=== PATIENT | female | born 1945 | race Caucasian/White ===

== ENCOUNTER 2021-09-29 09:49 | Emergency (ER) | payer MEDICARE, SELFPAY ==
--- NOTE | ~2021-09-29 | US_ITS ---
EXAMINATION:US venous doppler LE BI INDICATION:Leg swelling TECHNIQUE: Multiple grayscale, color flow and Doppler images of the right and left lower extremity de ep venous systems were obtained and reviewed. COMPARISON:No prior studies for comparison. FINDINGS: The common femoral, superficial femoral and popliteal veins demonstrate normal respiratory variation, augmentation and compressibility. Color flow is also seen within the posterior tibial, , greater saphenous and profunda veins. Peroneal veins are not visualized due to patient body habitus. IMPRESSION: 1: No lower extremity deep venous thrombosis. Reviewed, dictated and finalized at location B. [employer] OPERATOR
[2021-09-29 10:44] VITALS: BP 139/79; PULSE 77; RESP 16; TEMP 36.1; O2SAT 96
--- NOTE | 2021-09-29 12:28 | ECG_ITS ---
Measurements Intervals [place] Rate: 69 P: 65 SD: 186 QRS: -25 QRSD: 96 T: -3 QT: 401 QTc: 430 Interpretive Statements SINUS RHYTHM CONSIDER INFERIOR INFARCT, AGE INDETERMINATE BASELINE ARTIFACT- I, II, III, AVR, AVL, AVF, V1-V2 ABNORMAL ECG Electronically Signed On 09-29-2021 17:56:44 [employer]EL FINISHER by Naseem Justice D.O.
--- NOTE | 2021-09-29 12:52 | ED.GENADULT ---
HPI - General Adult General Chief complaint: Extremity Problem,Nontraumatic Stated complaint: Swelling feet Time Seen by Provider: 09/29/21 12:28 Source: patient History of Present Illness HPI narrative: Patient is a 76 y/o female complaining of severe bilateral leg swelling for 1-2 months. There is no known alleviating or exacerbating factor. She has no leg pain, no chest pain or SOB. Review of Systems Constitutional: Constitutional: Denies chills, Denies fever(s), Denies headache(s) and Denies weakness Eyes: Eyes: Denies blurry vision ENT: Denies headache(s) and Denies neck pain Cardiovascular: Cardiovascular: Denies chest pain, Reports pedal edema and Denies dyspnea Respiratory: Respiratory: Denies cough and Denies dyspnea Gastrointestinal: Gastrointestinal: Denies abdominal pain, Denies diarrhea, Denies nausea and Denies vomiting Genitourinary: Genitourinary: Denies hematuria and Denies dysuria Musculoskeletal: Musculoskeletal: Denies back pain and Denies neck pain Neurologic: Denies headache(s) and Denies weakness Exam Const: General: no acute distress and well developed Orientation/consciousness: oriented to person, oriented to place, oriented to time and patient oriented x3 HENMT: Head: normocephalic Ears: external ears normal General nose exam: Normal external nose present Eyes: General: appearance normal, both eyes and all related structures Conjunctivae: conjunctivae normal Neck: Neck: normal visual inspection and full ROM Chest: Chest palpation & inspection: normal inspection of the chest and no tenderness Resp: Effort & Inspection: normal respiratory effort Auscultation: clear to auscultation bilaterally Cardio: Rate: regular rate Rhythm: regular rhythm GI: GI Palp: No abdominal tenderness and Yes Soft to palpation Skin: General skin exam: normal color and turgor normal Neuro: General: oriented to person, oriented to place, oriented to time and patient oriented x3 Cognition (Neuro): normal cognition Extrem: General: full ROM and edema bilateral Psych: Appearance: grossly normal Mental Status: mental status grossly normal Affect: normal affect Course Vital Signs Vital signs: Vital Signs Temperature 36.1 C L 09/29/21 10:44 Pulse Rate 77 09/29/21 10:44 Respiratory Rate 16 09/29/21 10:44 Blood Pressure 139/79 09/29/21 10:44 Pulse Oximetry 96 09/29/21 10:44 Temperature 36.1 C L 09/29/21 10:44 Pulse Rate 77 09/29/21 10:44 Respiratory Rate 18 09/29/21 15:18 Blood Pressure 137/62 09/29/21 14:31 Pulse Oximetry 98 09/29/21 14:31 Medical Decision Making Vital Signs Vital Signs: Vital Signs Temperature 36.1 C L 09/29/21 10:44 Pulse Rate 77 09/29/21 10:44 Respiratory Rate 16 09/29/21 10:44 Blood Pressure 139/79 09/29/21 10:44 Pulse Oximetry 96 09/29/21 10:44 Temperature 36.1 C L 09/29/21 10:44 Pulse Rate 77 09/29/21 10:44 Respiratory Rate 18 09/29/21 15:18 Blood Pressure 137/62 09/29/21 14:31 Pulse Oximetry 98 09/29/21 14:31 Lab Data Result diagrams: 09/29/21 13:23 09/29/21 13:23 Labs: Lab Results 09/29/21 09/29/21 Range/Units 13:23 13:23 WBC 7.0 (4.5-10.0) K/mm3 RBC 3.45 L (4.2-5.4) M/mm3 Hgb 10.2 L (12.0-15.0) g/dL Hct 31.3 L (37.0-47.0) % MCV 90.7 (80-100) fl MCH 29.6 (26-34) pg MCHC 32.6 (32-36) g/dl RDW 14.6 H (11.5-14.5) % Plt Count 257 (150-375) k/mm3 MPV 9.0 (7.4-10.4) fl Immature Gran % (Auto) 0.3 (0-0.5) % Neut % (Auto) 61.4 (45.5-73.1) % Lymph % (Auto) 27.4 (18.3-44.2) % Cobb % (Auto) 9.7 H (2.6-8.5) % Eos % (Auto) 0.6 (0-4.4) % Baso % (Auto) 0.6 (0.2-1.2) % Lymph # (Auto) 1.93 (0.9-3.2) K/mm3 Cobb # (Auto) 0.7 H (0.1-0.6) K/mm3 Eos # (Auto) 0.0 (0-0.3) K/mm3 Baso # (Auto) 0.0 (0.0-0.1) K/mm3 Abs Immat Gran (auto) 0.02 (0.00-0.031) K/mm3 Absolute Neuts (auto) 4.3 (1.3-6.7)
[2021-09-29 13:36] LABS: Basophils Percent Auto 0.6 % (0.2-1.2); Eosinophils Percent Auto 0.6 % (0-4.4); Hematocrit 31.3 % (37.0-47.0); Hemoglobin 10.2 g/dL (12.0-15.0); Immature Granulocyte Absolute 0.02 K/mm3 (0.00-0.031); Immature Granulocyte Percent A 0.3 % (0-0.5); Lymphocytes Absolute Auto 1.93 K/mm3 (0.9-3.2); Lymphocytes Percent Auto 27.4 % (18.3-44.2); Mean Corpuscular HGB Conc 32.6 g/dl (32-36); Mean Corpuscular Hemoglobin 29.6 pg (26-34); Mean Corpuscular Volume 90.7 fl (80-100); Monocytes Absolute Auto 0.7 K/mm3 (0.1-0.6); Monocytes Percent Auto 9.7 % (2.6-8.5); Neutrophils Absolute Auto 4.3 K/mm3 (1.3-6.7); Neutrophils Percent Auto 61.4 % (45.5-73.1); Platelet Count Result 257 k/mm3 (150-375); Red Blood Count 3.45 M/mm3 (4.2-5.4); Red Cell Distribution Width 14.6 % (11.5-14.5)
[2021-09-29 13:50] LABS: Alanine Aminotransferase 11 U/L (4-35); Albumin Level 3.7 g/dL (3.5-5.1); Alkaline Phosphatase 59 U/L (38-126); Anion Gap 5 mmol/L (8-16); Aspartate Amino Transferase 24 U/L (14-36); Bilirubin,Total 0.4 mg/dL (0.2-1.3); Blood Urea Nitrogen 15 mg/dL (7-17); Calcium 8.8 mg/dL (8.4-10.2); Carbon Dioxide 29 mmol/L (22-30); Chloride 101 mmol/L (98-107); Estimated CRCL calculation 81 ml/min; Estimated Glomerular Filt Rate > 60; Glucose 104 mg/dL (65-110); Potassium 3.5 mmol/L (3.4-5.0); Sodium 135 mmol/L (137-145)
[2021-09-29 13:55] VITALS: BP 127/114; O2SAT 100
[2021-09-29 13:57] LABS: NT Pro B Type Natriuretic Pept 87 pg/mL (5-100)
[2021-09-29 14:01] VITALS: BP 132/68; O2SAT 99
[2021-09-29 14:16] VITALS: BP 135/58; O2SAT 99
[2021-09-29 14:31] VITALS: BP 137/62; O2SAT 98
[2021-09-29 15:18] VITALS: RESP 18
== END 2021-09-29 15:18 | disposition home or self-care (01) ==
PROVIDERS: Emergency Provider Emergency Medicine
DX: M79.89 Other specified soft tissue disorders (principal)
CPT/HCPCS: 36415; 80053; 83880; 85025; 93005; 93970; 99284